=== PATIENT | male | born 1980 | race Caucasian/White ===

== ENCOUNTER 2019-09-04 09:35 | Emergency (ER) | payer OTHER, SELFPAY ==
[2019-09-04 09:59] VITALS: BP 201/84; PULSE 55; RESP 18; TEMP 37.6; O2SAT 100
--- NOTE | 2019-09-04 10:28 | ED.GENADULT ---
HPI - General Adult General Chief complaint: Headache Stated complaint: Headache Source: patient Mode of arrival: ambulatory Limitations: no limitations History of Present Illness HPI narrative: Patient is a 39-year-old male who presents complaining of headache x3 days. Patient reports taking multiple gmot-[id number]-cfflbty medications without relief. He reports headache pain is 9/10. Patient found to be hypertensive in triage. He does not have a PCP. At this time he denies chest pain or shortness of breath. MD complaint: Headache Related Data Home Medications Medication Instructions Recorded Confirmed No Home Medications 09/04/19 09/04/19 Allergies Allergy/AdvReac Type Severity Reaction Status Date / Time No Known Allergies Allergy Verified 09/04/19 13:31 Review of Systems Review of Systems: Narrative: CONSTITUTIONAL: Denies fever, chills, or sweats. EYES: Denies visual changes, redness, or discharge. ENT: Denies rhinorrhea, congestion, sore throat, or otalgia. CARDIOVASCULAR: Denies chest pain, palpitations, or edema. RESPIRATORY: Denies cough or dyspnea. GASTROINTESTINAL: Denies abdominal pain, nausea, vomiting, or diarrhea. GENITOURINARY: Denies dysuria or hematuria. SKIN: Denies rash or itching. MUSCULOSKELETAL: Denies back pain, joint pain, or myalgia. NEUROLOGIC: Reports headache, denies numbness, dizziness, or weakness. PSYCHIATRIC: Denies anxiety or depression. [facility] Social History Social History Smoking status: Current every day smoker Tobacco type: cigarettes Alcohol intake: current Substance use: never Exam Narrative: Exam Narrative: GENERAL: Well-appearing, well-nourished, and in no acute distress. HEAD: Normocephalic, atraumatic. EYES: EOMI. No redness or drainage. Conjunctiva are normal. ENT: Mucous membranes pink and moist. Nares clear. No rhinorrhea. TMs normal bilaterally. Throat normal. Uvula midline. NECK: AROM. Supple. No lymphadenopathy. CHEST: No respiratory distress. Clear to auscultation. HEART: Regular rate and rhythm. No murmur appreciated. Normal peripheral pulses. GI: Soft, nontender without rebound, or guarding. No distention. Bowel sounds normal in all quadrants. MUSCULOSKELETAL: No bony tenderness. EXTREMITIES: Normal range of motion. No edema. SKIN: Warm, dry, no rash. NEURO: No focal deficits. Alert and oriented x3. Gait steady. PSYCH: Normal affect. No signs of depression or anxiety. Course Course Emergency Course: Patient to be transferred to [facility] for further evaluation of blood pressure. Patient was sent by nursing before EKG completed. Vital Signs Vital signs: Vital Signs Temperature 37.6 C H 09/04/19 09:59 Pulse Rate 55 L 09/04/19 09:59 Respiratory Rate 18 09/04/19 09:59 Blood Pressure 201/84 H 09/04/19 09:59 Pulse Oximetry 100 09/04/19 09:59 Temperature 37.6 C H 09/04/19 09:59 Pulse Rate 55 L 09/04/19 09:59 Respiratory Rate 18 09/04/19 09:59 Blood Pressure 201/84 H 09/04/19 09:59 Pulse Oximetry 100 09/04/19 09:59 Reviewed Transfer Transfered to: [place] Transfer rationale: Higher level care Accepting physician: Dr. Bishop Transfer comments: Patient refuses EMS, patient to drive self to [place] at this time. Patient warned of risk. Medical Decision Making MDM Narrative Medical decision making narrative: Patient's blood pressure is extremely elevated in urgent care. Patient is also reporting intractable headache even after taking multiple medications. Patient sent to [facility] for further evaluation of blood pressure. Differential Diagnosis Differential Diagnosis: hypertension, migraine Vital Signs Vital Signs: Vital Signs Temperature 37.6 C H 09/04/19 09:59 Pulse Rate 55 L 09/04/19 09:59 Respiratory Rate 18 09/04/19 09:59 Blood Pressure 201/84 H 09/04/19 09:59 Pulse Oximetry 100 09/04/19 09:59 Temper
== END 2019-09-04 10:38 | disposition short-term general hospital (02) ==
LOC: EXPCOLL 09:40
PROVIDERS: Emergency Provider Nurse Practitioner
DX: I10 Essential (primary) hypertension (principal); R51 Headache; F17.210 Nicotine dependence, cigarettes, uncomplicated
CPT/HCPCS: 99203; G0463

== ENCOUNTER 2019-09-04 10:53 | Emergency (ER) | payer OTHER, SELFPAY ==
--- NOTE | ~2019-09-04 | CT_ITS ---
EXAMINATION: CTA brain carotid EXAM DATE: 09/04/2019 13:13 INDICATION: Headache, dizziness. Hypertension. TECHNIQUE: Noncontrast head CT. Spiral CTA of the carotid arteries was performed with intravenous i njection 100 cc of Omnipaque 350. Axial, coronal, sagittal reformatted images reviewed. Additional r eformatted images created on dedicated 3-D workstation. NASCET comparable standard used to assess th e degree of arterial stenosis. Spiral CT angiogram cerebral arteries performed with the same intrave nous injection of contrast. Source images of the brain CTA transferred to dedicated workstation for 3 -D rotational image creation. Coronal, sagittal maximum intensity pixel images also reviewed. The d ose-length product (DLP) for this examination was 1735.20 mGy-cm. The exposure was tailored accordi ng to patient size, and iterative reconstruction (ASIR) was used as additional dose reduction techniq ue. There is no prior study for comparison. FINDINGS: There is acute subarachnoid hemorrhage centered at the prepontine cistern extending into th e basilar cistern, sylvian fissures bilaterally. On the CTA portion of examination there is an aneury sm/infundibulum at the basilar artery tip measuring about 5 x 7 mm. The basilar artery is extremely d iminished in caliber at about 1 mm, as are both distal ICAs, vessels around the king [place] of [place]. Thi s raises suspicion for arterial vasospasm. I discussed aneurysm, subarachnoid hemorrhage with Antwan Harrington PA-C at 09/04/2019 13:18 [employer]. The ventricles are narrow. There is absence of sulci from the level of the ventricles down, which sug gests possibility of cerebral edema. Also rather crowded appearance, diminished CSF space in the post erior fossa, without herniation. No other cerebral artery aneurysms identified. No acute extra-axial collections. Wong-white differentiation is preserved. No evidence of brain mass. There is 0% carotid stenosis bilaterally. IMPRESSION: 1. 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 2. Diminished caliber to vertebral basilar arteries, distal ICAs, [place] arteries suspiciou s for vasospasm. 3. Absence of sulci from level of ventricular bodies down indicating possibility of developing cerebr al edema. No herniation at present. 4. Emergent neurointerventional/neurosurgical evaluation indicated. Reviewed, dictated and finalized at location B. [employer] IMPRESSION: 1. 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 2. Diminished caliber to vertebral basilar arteries, distal ICAs, [place] arteries suspicious for vasospasm. 3. Absence of sulci from level of ventricular bodies down indicating possibilit y of developing cerebral edema. No herniation at present. 4. Emergent neurointerventional/neurosurgical evaluation indicated.
[2019-09-04 11:01] VITALS: BP 167/85; PULSE 65; RESP 18; TEMP 36.4; O2SAT 100
[2019-09-04 12:53] LABS: Basophils Absolute Auto 0.1 K/mm3 (0.0-0.1); Basophils Percent Auto 0.3 % (0.2-1.2); Hemoglobin 16.1 g/dL (14.0-18.0); Immature Granulocyte Absolute 0.19 K/mm3 (0.00-0.031); Immature Granulocyte Percent A 0.9 % (0-0.5); Lymphocytes Absolute Auto 2.22 K/mm3 (0.9-3.2); Lymphocytes Percent Auto 10.9 % (18.3-44.2); Mean Corpuscular HGB Conc 33.5 g/dl (32-36); Mean Corpuscular Hemoglobin 29.3 pg (26-34); Mean Corpuscular Volume 87.4 fl (80-100); Mean Platelet Volume 9.5 fl (7.4-10.4); Monocytes Absolute Auto 1.4 K/mm3 (0.1-0.6); Neutrophils Absolute Auto 16.5 K/mm3 (1.3-6.7); Neutrophils Percent Auto 80.9 % (45.5-73.1); Platelet Count Result 456 k/mm3 (150-375); Red Blood Count 5.49 M/mm3 (4.6-6.20); Red Cell Distribution Width 12.9 % (11.5-14.5); White Blood Count 20.5 K/mm3 (4.5-10.0)
[2019-09-04 12:57] LABS: Blood Urea Nitrogen 13 mg/dL (9-20); Calcium 8.7 mg/dL (8.4-10.2); Carbon Dioxide 24 mmol/L (22-30); Chloride 98 mmol/L (98-107); Estimated Glomerular Filt Rate > 60; Glucose 187 mg/dL (75-110); Potassium 3.7 mmol/L (3.4-5.0); Sodium 136 mmol/L (137-145)
[2019-09-04 13:01] LABS: Blood Urea Nitrogen 12 mg/dL (8-26); Estimated Glomerular Filt Rate > 60
[2019-09-04 13:02] LABS: Partial Thromboplastin Time 28.4 SECONDS (22.3-36.8); Prothrombin Time 13.2 Seconds (11.1-14.7)
--- NOTE | 2019-09-04 13:22 | ED.GENADULT ---
HPI - General Adult General Chief complaint: Recheck/Abnormal Lab/Rx <Antwan Harrington PA-C - Last Filed: 09/04/19 13:57> Stated complaint: high blood pressure <Antwan Harrington PA-C - Last Filed: 09/04/19 13:57> Time Seen by Provider: 09/04/19 11:13 <Antwan Harrington PA-C - Last Filed: 09/04/19 13:57> Source: patient <Antwan Harrington PA-C - Last Filed: 09/04/19 13:57> Mode of arrival: ambulatory <Antwan Harrington PA-C - Last Filed: 09/04/19 13:57> Limitations: no limitations <Antwan Harrington PA-C - Last Filed: 09/04/19 13:57> History of Present Illness HPI narrative: Patient is a 39-year-old male who presents to emergency department for evaluation of frontal posterior headache now for the last 4 days went to urgent care was referred to emergency department for further evaluation patient notes aching pain notes over the weekend he had had some feeling as though his gait was slightly unstable patient denies similar occurrence in the past has not taken anything for his symptoms denies illness thought maybe he may have had a contusion to the right side of his head but notes that he has never head and has had is far as he can tell and denies any syncope or loss of consciousness. Patient presents per private vehicle in no distress <Antwan Harrington PA-C - Last Filed: 09/04/19 13:57> Related Data Home medications: Home Medications Medication Instructions Recorded Confirmed No Home Medications 09/04/19 09/04/19 <Antwan Harrington PA-C - Last Filed: 09/04/19 13:57> Allergies/adverse reactions: Allergies Allergy/AdvReac Type Severity Reaction Status Date / Time No Known Allergies Allergy Verified 09/04/19 13:31 <Antwan Harrington PA-C - Last Filed: 09/04/19 13:57> Review of Systems Review of Systems: All systems reviewed & are unremarkable except as noted in HPI and below <Antwan Harrington PA-C - Last Filed: 09/04/19 13:57> [facility] Social History Social History: Social History Smoking status: Current every day smoker Tobacco type: cigarettes Alcohol intake: current Substance use: never <Antwan Harrington PA-C - Last Filed: 09/04/19 13:57> Exam Narrative: Exam Narrative: GENERAL: Well-appearing, well-nourished, and in no acute distress. HEAD: Normocephalic, atraumatic. EYES: PERRLA and EOMI. ENT: Nares clear, no rhinorrhea or epistaxis. Mucous membranes moist. Oropharynx without tonsillar hypertrophy exudate or other lesions. NECK: Supple. No adenopathy or masses. CHEST: Clear to auscultation. No respiratory distress. No wheezes rales or rhonchi HEART: Regular rate and rhythm. No murmur heard. Normal peripheral pulses. ABDOMEN: Soft, nontender, nondistended EXTREMITIES: Normal range of motion. No edema. SKIN: Warm, dry, no rash. NEURO: No focal deficits. Alert and oriented x3. Cranial nerves II through XII grossly intact. Neurovascularly intact. Normal speech and gait PSYCH: Normal mood and affect. <Antwan Harrington PA-C - Last Filed: 09/04/19 13:57> Course Course Emergency Course: Patient in the room aware of case findings treatment plan and diagnosis agreeing to transfer <Antwan Harrington PA-C - Last Filed: 09/04/19 13:57> [employer]/PA Physician Supervision For this patient encounter, I reviewed the [employer] LETTER [employer]ER or PA documentation, treatment plan, and medical decision making; and I had [id number] time with this patient. Patient presented with headache that started suddenly and severe. Patient is awake alert and oriented x 4. No focal deficits and in no acute distress. He was found to have intracranial hemorrhage due to apparent aneursym. He has been started on cardene infusion for BP control. <Jerrica Berrios MD - Last Filed: 09/04/19 18:22> Consultations Consultation #1: Spoke with neurosurgery and ER physician is Lilibeth have excepted the patient would lik
[2019-09-04 13:28] VITALS: BP 189/83; PULSE 88; RESP 17; O2SAT 100
[2019-09-04 13:41] VITALS: BP 215/98; PULSE 73; RESP 21; O2SAT 100
--- NOTE | 2019-09-04 13:44 | PC.NURSE ---
BLADIMIR SAGASTUME AND RN IN ROOM UPDATING PT, AWAITING CALL FROM [facility] AT THIS TIME.
--- NOTE | 2019-09-04 13:45 | PC.NURSE ---
BLADIMIR SAGASTUME AWARE OF PT ELEVATED BP, NO NEW ORDERS AT THIS TIME, STATES THAT HE WANTS TO TALK WITH NEURO PRIOR TO ORDERING ANYTHING.
--- NOTE | 2019-09-04 13:54 | PC.NURSE ---
Called [facility] to transfer pt to a higher level of care. They can not take this trip at this time because they are [facility]
[2019-09-04] MEDS: niCARdipine 20 MG/200 ML 20 MG/200 ML BAG 50 MG IV CONT (14:04)
[2019-09-04 14:06] VITALS: BP 187/84; PULSE 74; RESP 18; O2SAT 100
--- NOTE | 2019-09-04 14:07 | PC.NURSE ---
[facility] is [facility]
--- NOTE | 2019-09-04 14:08 | PC.NURSE ---
Called [facility] to transfer pt to a higher level of care. They declined, JD
--- NOTE | 2019-09-04 14:08 | PC.NURSE ---
Called [facility] to transfer pt to a higher level of care. ETA [id number]. Trip# [id number]
--- NOTE | 2019-09-04 14:19 | PC.NURSE ---
Cardene titrated to 7.5 at this time per BLADIMIR laura verbal order. BP 186/90.
[2019-09-04 14:21] VITALS: BP 189/90; PULSE 64; RESP 16; O2SAT 99
--- NOTE | 2019-09-04 14:46 | PC.NURSE ---
Cardene titrated to 12.5 mg/hour per KAITLIN fischer. BP 189/95.
[2019-09-04 14:47] VITALS: BP 189/95; PULSE 76; RESP 16; O2SAT 100
== END 2019-09-04 14:49 | disposition short-term general hospital (02) ==
PROVIDERS: Emergency Medicine Emergency Medical Services; Emergency Provider General Practice
DX: I61.9 Nontraumatic intracerebral hemorrhage, unspecified (principal); F17.210 Nicotine dependence, cigarettes, uncomplicated
CPT/HCPCS: 36415; 70496; 70498; 80048; 85025; 85610; 85730; 96365; 96367; 99291; J0131; Q9967